=== PATIENT | male | born 1950 | race Caucasian/White ===

== ENCOUNTER 2017-05-22 13:49 | Day surgery (SDC) | payer MEDICARE ==
[~2017-05-22] VITALS: Ht 188 cm; Wt 75.0 kg
[2017-05-22] MEDS ORDERED: TOPROL XL 25MG25 MG PO (14:05)
[2017-05-22] MEDS ORDERED: ASPIRIN 81M81 MG/TA2 PO (14:06)
[2017-05-22 16:03] VITALS: BP 147/86; PULSE 67; TEMP 99.9
[2017-05-22 16:46] VITALS: BP 127/81; PULSE 76; TEMP 97.5
[2017-05-22 17:01] VITALS: BP 136/89; PULSE 77
[2017-05-22 17:16] VITALS: BP 143/96; PULSE 69
[2017-05-22 17:31] VITALS: BP 143/93; PULSE 70
== END 2017-05-22 17:46 | disposition home or self-care (01) ==
LOC: COL.ER 13:49 → SDCO 16:03
DX: S52.502A Unspecified fracture of the lower end of left radius, initial encounter for closed fracture (principal); I10 Essential (primary) hypertension; Z79.82 Long term (current) use of aspirin; F17.220 Nicotine dependence, chewing tobacco, uncomplicated; Z82.49 Family history of ischemic heart disease and other diseases of the circulatory system
CPT/HCPCS: J2704; J3010

== ENCOUNTER → 2020-11-06 | Outpatient (CLI) | payer MEDICARE, MEDICAID ==
[~2020-11-06] MED LIST: ASPIRIN 81M81 MG/TA2 PO; TOPROL XL 25MG25 MG PO
== END ==
LOC: COL.RAD 08:09
DX: M41.86 Other forms of scoliosis, lumbar region (principal); M43.28 Fusion of spine, sacral and sacrococcygeal region

== ENCOUNTER → 2020-11-29 | Outpatient (CLI) | payer MEDICARE, MEDICAID | LOC: COL.RAD 11-27 09:45 | DX: R93.89 Abnormal findings on diagnostic imaging of other specified body structures (principal); M19.039 Primary osteoarthritis, unspecified wrist | CPT/HCPCS: A9503 ==

== ENCOUNTER → 2021-08-19 | Outpatient (CLI) | payer MEDICARE, MEDICAID | LOC: COL.RAD 10:50 | DX: M41.86 Other forms of scoliosis, lumbar region (principal); G57.32 Lesion of lateral popliteal nerve, left lower limb; G62.9 Polyneuropathy, unspecified | CPT/HCPCS: A9575 ==

== ENCOUNTER → 2021-09-27 | Outpatient (CLI) | payer MEDICARE, MEDICAID | LOC: COL.RAD 12:48 | DX: M48.02 Spinal stenosis, cervical region (principal); M50.31 Other cervical disc degeneration, high cervical region; M21.372 Foot drop, left foot; G57.32 Lesion of lateral popliteal nerve, left lower limb; G62.9 Polyneuropathy, unspecified; G60.9 Hereditary and idiopathic neuropathy, unspecified; Z98.1 Arthrodesis status | CPT/HCPCS: A9575 ==

== ENCOUNTER → 2021-10-16 | Outpatient (CLI) | payer MEDICARE, MEDICAID | LOC: COL.RAD 11:10 | DX: M17.12 Unilateral primary osteoarthritis, left knee (principal); G57.32 Lesion of lateral popliteal nerve, left lower limb; G62.9 Polyneuropathy, unspecified; R53.1 Weakness ==